=== PATIENT | male | born 1975 | race Caucasian/White ===

== ENCOUNTER 2024-03-27 08:43 | Outpatient (CLI) | payer BC, SELFPAY | END 2024-03-27 08:44 | disposition home or self-care (01) | PROVIDERS: PCP Emergency Medicine; Visit Provider Emergency Medicine | DX: E78.2 Mixed hyperlipidemia (principal); I10 Essential (primary) hypertension; R17 Unspecified jaundice; Z12.5 Encounter for screening for malignant neoplasm of prostate | CPT/HCPCS: 80053; 80061; G0103 ==

== ENCOUNTER 2024-05-08 13:07 | Outpatient (CLI) | payer BC, SELFPAY ==
--- NOTE | 2024-05-15 08:41 | W.PM.SLEEP ---
Sleep Study Details Details Interpreting Provider: Rosanne Date of Sleep Study: 05/08/24 Sleep Study Details: STUDY TYPE:? Home unattended ? BMI:? 33.5 ORDERING PROVIDER: Rosanne INDICATION:? Concern about sleep PAP ? SLEEP SUMMARY:? 447 minutes monitored RESPIRATORY SUMMARY:? AHI 12.1 Low oxygen 83 27% of study oxygen less than 90% Snoring 82.3% PERIODIC LIMB MOVEMENTS OF SLEEP: Not recorded CARDIAC:? Range 57-113, mean 71.2 beats per minute IMPRESSION:? Mild obstructive sleep apnea RECOMMENDATION: Treatment options include CPAP, dental appliance and/or airway expansion surgery.
== END 2024-05-08 13:08 | disposition home or self-care (01) ==
LOC: SLEEP 13:07
PROVIDERS: PCP Emergency Medicine; Visit Provider Otolaryngology
DX: G47.33 Obstructive sleep apnea (adult) (pediatric) (principal)
CPT/HCPCS: 95806